=== PATIENT | female | born 1955 | race Native Hawaiian/Other Pacific Islander ===

== ENCOUNTER 2020-08-10 09:39 | Emergency (ER) | payer OTHER ==
[~2020-08-10] VITALS: Ht 157.5 cm; Wt 90.7 kg
[2020-08-10 09:39] VITALS: TEMP 98.4
[2020-08-10 10:16] LABS: POTASSIUM 3.5 mmol/L (3.6-5.2); SODIUM 140 mmol/L (136-145)
[2020-08-10 10:35] LABS: PLATELET COUNT 347 K/uL (152-353)
[2020-08-10 11:08] VITALS: BP 166/69
== END 2020-08-10 11:12 | disposition home or self-care (01) ==
LOC: EDBD 09:39 → ED 09:39
PROVIDERS: Family Medicine
DX: R07.89 Other chest pain (principal); R06.09 Other forms of dyspnea
CPT/HCPCS: 80053; 82550; 82553; 82728; 83880; 84484; 85027; 93005; 99284